=== PATIENT | female | born 1995 | race Caucasian/White ===

== ENCOUNTER 2019-08-11 17:56 | Emergency (ER) | payer OTHER ==
[~2019-08-11] VITALS: Ht 162.6 cm; Wt 53.1 kg
[2019-08-11] MEDS ORDERED: DIALYVITE 800-1 EACH (18:13)
[2019-08-11] MEDS ORDERED: ATABEX DHA 200200 MG (18:13)
== END 2019-08-11 21:28 | disposition home or self-care (01) ==
LOC: ER 17:56
DX: O26.891 Other specified pregnancy related conditions, first trimester (principal); G40.89 Other seizures; Z34.01 Encounter for supervision of normal first pregnancy, first trimester
CPT/HCPCS: 70551

== ENCOUNTER → 2019-10-16 | Outpatient (CLI) | payer OTHER ==
[~2019-10-16] MED LIST: ATABEX DHA 200200 MG; DIALYVITE 800-1 EACH
== END | disposition home or self-care (01) ==
LOC: PRENATAL 11:00
DX: O35.3XX0 Maternal care for (suspected) damage to fetus from viral disease in mother, not applicable or unspecified (principal); Z36.89 Encounter for other specified antenatal screening

== ENCOUNTER → 2019-12-18 | Outpatient (CLI) | payer OTHER | END | disposition home or self-care (01) | LOC: PRENATAL 08:00 | PROVIDERS: ATTEND Obstetrics & Gynecology Maternal & Fetal Medicine | DX: O35.0XX1 Maternal care for (suspected) central nervous system malformation in fetus, fetus 1 (principal); O26.843 Uterine size-date discrepancy, third trimester; Z36.89 Encounter for other specified antenatal screening; Z3A.28 28 weeks gestation of pregnancy ==

== ENCOUNTER → 2020-01-23 | Outpatient (CLI) | payer OTHER | END | disposition home or self-care (01) | LOC: PRENATAL 14:00 | PROVIDERS: ATTEND Obstetrics & Gynecology Maternal & Fetal Medicine | DX: O26.843 Uterine size-date discrepancy, third trimester (principal); O36.8131 Decreased fetal movements, third trimester, fetus 1; Z36.89 Encounter for other specified antenatal screening; Z3A.34 34 weeks gestation of pregnancy ==

== ENCOUNTER 2020-02-12 11:40 | Outpatient (CLI) | payer OTHER | END 2020-02-12 11:48 | disposition home or self-care (01) | LOC: LAB 11:40 | PROVIDERS: ATTEND Specialist | DX: D68.8 Other specified coagulation defects (principal); D50.8 Other iron deficiency anemias ==

== ENCOUNTER 2020-03-04 09:39 | Outpatient (CLI) | payer OTHER | END 2020-03-04 09:43 | disposition home or self-care (01) | LOC: LAB 09:39 | PROVIDERS: ATTEND Specialist | DX: D50.8 Other iron deficiency anemias (principal); D68.8 Other specified coagulation defects ==

== ENCOUNTER 2020-03-06 14:00 | Inpatient (IN) | payer OTHER ==
[~2020-03-06] VITALS: Ht 162.6 cm; Wt 68.5 kg
== END 2020-03-14 13:10 | disposition home or self-care (01) | DRG 768 ==
LOC: LDR 03-11 14:00 → OB/GYN 03-12 06:29 → LDR 03-12 06:39 → OB/GYN 03-12 17:06
PROVIDERS: ADMIT Specialist; ATTEND Specialist
PROC: 10E0XZZ Delivery of Products of Conception, External Approach (ICD-10-PCS; principal; 2020-03-12)
PROC: 0TQDXZZ Repair Urethra, External Approach (ICD-10-PCS; 2020-03-12)
PROC: 3E033VJ Introduction of Other Hormone into Peripheral Vein, Percutaneous Approach (ICD-10-PCS; 2020-03-12)
PROC: 4A0HXFZ Measurement of Products of Conception, Cardiac Rhythm, External Approach (ICD-10-PCS; 2020-03-12)
DX: O71.5 Other obstetric injury to pelvic organs (principal); Z37.0 Single live birth; Z3A.40 40 weeks gestation of pregnancy; Z20.828 Contact with and (suspected) exposure to other viral communicable diseases